=== PATIENT | female | born 1990 | race Two or more races ===

== ENCOUNTER 2016-05-12 11:54 | Emergency (ER) | payer BC ==
[2016-05-12 12:32] LABS: % IMMATURE GRANULYOCYTES 0.2 % (0.0-1.1); ABSOLUTE IMMATURE GRANULOCYTES 0.01 10^3/uL (0.00-0.10); ADD DIFF? NO; ADD MORPH? NO; ADD SCAN? NO; ATYPICAL LYMPHOCYTE FLAG 10 (0-99); FRAGMENT RBC FLAG 0 (0-99); HEMATOCRIT 47.5 % (38.0-47.0); HEMOGLOBIN 16.1 g/dL (12.6-16.3); LEFT SHIFT FLG 0 (0-99); LIPEMIA HEMOLYSIS FLAG 90 (0-99); MEAN CELL HEMOGLOBIN 31.3 pg (27.9-34.1); MEAN CELL HEMOGLOBIN CONCENTR. 33.9 g/dL (32.4-36.7); MEAN CELL VOLUME 92.2 fL (81.5-99.8); MEAN PLATELET VOLUME 11.5 fL (8.7-11.7); PLATELET CLUMPS FLAG 0 (0-99); PLATELET COUNT 253 10^3/uL (150-400); RED BLOOD CELL COUNT 5.15 10^6/uL (4.18-5.33); RED CELL DISTRIBUTION WIDTH 12.8 % (11.5-15.2)
[2016-05-12 12:54] LABS: ANION GAP 14 mEq/L (8-16); CALCIUM 10.1 mg/dL (8.5-10.4); CARBON DIOXIDE 23 mEq/l (22-31); CHLORIDE 104 mEq/L (97-110); CREATININE 0.8 mg/dL (0.6-1.0); GLOMERULAR FILTRATION RATE > 60; GLUCOSE 93 mg/dL (70-100); POTASSIUM 4.4 mEq/L (3.5-5.2); SODIUM 141 mEq/L (134-144)
[2016-05-12] MEDS ORDERED: ONDANSETRON 4 MG/2 ML VIAL IVP ONE (12:55)
[2016-05-12] MEDS ORDERED: NS 1,000 ML IV ONE (12:55)
[2016-05-12] MEDS ORDERED: ONDANSETRON 4 MG/2 ML VIAL ONE (12:55)
[2016-05-12 13:04] VITALS: TEMP 99
--- NOTE | 2016-05-12 13:08 | EDPHY ---
H & P Time Seen by Provider: 05/12/16 12:06 HPI/ROS: CHIEF COMPLAINT: Nausea, vomiting, blood in stool HISTORY OF PRESENT ILLNESS: 26-year-old female presents to the emergency department with nausea and vomiting over last 24 hours. The patient has vomited 3 times last 24 hours. She was able to keep a few sips of the smoothie down today. Over the last 1 year she has had intermittent blood in her stool. She has never seen a GI doctor for this. She has a twin sister has Crohn's disease. She denies abdominal pain. Denies fevers or chills. Denies recent travel. Denies diarrhea. No headache now although she states that she did have a headache last night. She is urinating normally. Last menstrual period was 1 week ago. REVIEW OF SYSTEMS: Constitutional: No fever, no chills. Eyes: No double or blurry vision. ENT: No sore throat. Respiratory: No cough, no shortness of breath. Cardiac: No chest pain. Gastrointestinal: Nausea and vomiting and blood in stool as above. No abdominal pain. Genitourinary: No dysuria. Musculoskeletal: No neck or back pain. Skin: No rashes. Neurological: No headache. Past Medical/Surgical History: Negative Social History: Single Smoking Status: Light smoker Physical Exam: General Appearance: Alert, no distress. 114/68, heart rate of 90, 96% on room air. Nontoxic appearing. Eyes: Pupils equal and round. Extraocular motions are all intact. ENT: Mouth: Mucous membranes moist. Respiratory: No wheezing, rhonchi, or rales, lungs are clear to auscultation. Cardiovascular: Regular rate and rhythm. Gastrointestinal: Abdomen is soft and nontender, no masses, no rebound or guarding, bowel sounds normal. Rectal exam: Normal sphincter tone with no evidence of external hemorrhoids. Gloved finger reveals bright red blood without stool. Exam performed with her friend at bedside. Neurological: Alert and oriented x 3, cranial nerves II through XII grossly intact Skin: Warm and dry, no rashes. Musculoskeletal: Nontender to palpate along the cervical, thoracic or lumbar spine. Neck is supple. Extremities: Full range of motion and no peripheral edema. Psychiatric: Patient is oriented X 3, there is no agitation. Constitutional: Initial Vital Signs Temperature (C) 36.3 C 05/12/16 11:57 Heart Rate 90 02/26/17 11:57 Respiratory Rate 18 05/12/16 11:57 Blood Pressure 114/68 05/12/16 11:57 O2 Sat (%) 96 05/12/16 11:57 O2 Delivery Mode Room Air Allergies/Adverse Reactions: No Known Allergies Allergy (Unverified 05/12/16 12:02) Home Medications: Medication Instructions Recorded NK [No Known Home Meds] 05/12/16 Medical Decision Making ED Course/Re-evaluation: 26-year-old female presents with nausea and vomiting. On rectal examination the patient had blood without any stool. I spoke with Dr. Vikash Burns who is on-call for GI and he will see this patient in follow -up. He agrees with colonoscopy. Patient was encouraged to arrange for follow- up appointment. Upon discharge the patient is tolerating water. Her stomach is feeling better. She is comfortable being discharged home. I do not think imaging studies are necessary. Her abdomen is benign. She has no peritoneal signs. Differential Diagnosis: Including but not limited to Crohn's disease, ulcerative colitis, irritable bowel, GI bleed, acute appendicitis - Data Points Laboratory Results: Laboratory Results 05/12/16 12:22 05/12/16 12:22 05/12/16 05/12/16 05/12/16 12:22 12:22 12:22 WBC 5.01 10^3/uL 10^3/uL (3.80-9.50) RBC 5.15 10^6/uL 10^6/uL (4.18-5.33) Hgb 16.1 g/dL g/dL (12.6-16.3) Hct 47.5 % H % (38.0-47.0) MCV 92.2 fL fL (81.5-99.8) MCH 31.3 pg pg (27.9-34.1) MCHC 33.9 g/dL g/dL (32.4-36.7) RDW 12.8 % % (11.5-15.2) Plt Count 253 10^3/uL 10^3/uL (150-400) MPV 11.5 fL fL (8.7-11.7) Neut % (Auto) 56.1 % % (39.3-74.2) Lymph % (Auto) 32.1 % % (15.0-45.0) [place] % (Auto) 6.6 % % (4.5-13.0) Eos % (Auto) 4.0 % % (0.6-7.6) Baso % (Auto) 1.0 % % (0.3-1.7) Nucleat RBC Rel Count 0.0 % % (0.0-0.2) Absolute Neuts (auto) 2.81 10^3/uL 10^3/uL (1.70-6.50) Absolute Lymphs (auto) 1.61 10^3/uL 10^3/uL (1.00-3.00) Absolute Monos (auto) 0.33 10^3/uL 10^3/uL (0.30-0.80) Absolute Eos (auto) 0.20 10^3/uL 10^3/uL (0.03-0.40) Absolute Basos (auto) 0.05 10^3/uL 10^3/uL (0.02-0.10) Absolute Nucleated RBC 0.00 10^3/uL 10^3/uL (0-0.01) Immature Gran % 0.2 % % (0.0-1.1) Immature Gran # 0.01 10^3/uL 10^3/uL (0.00-0.10) Sodium 141 mEq/L mEq/L (134-144) Potassium 4.4 mEq/L mEq/L (3.5-5.2) Chloride 104 mEq/L mEq/L (97-110) Carbon Dioxide 23 mEq/l mEq/l (22-31) Anion Gap 14 mEq/L mEq/L (8-16) BUN 19 mg/dL mg/dL (7-23) Creatinine 0.8 mg/dL mg/dL (0.6-1.0) Estimated GFR > 60 Glucose 93 mg/dL mg/dL (70-100) Calcium 10.1 mg/dL mg/dL (8.5-10.4) Beta HCG, Qual NEGATIVE Medications Given: Discontinued Medications Sodium Chloride (Ns) 1,000 mls @ 0 mls/hr IV ONCE ONE PRN Reason: Wide Open Stop: 05/12/16 12:56 Last Admin: 05/12/16 13:03 Dose: 1,000 mls Ondansetron HCl (Zofran) 4 mg IVP EDNOW ONE Stop: 05/12/16 12:56 Last Admin: 05/12/16 13:03 Dose: 4 mg Departure - Departure Disposition: Home, Routine, Self-Care Clinical Impression: Blood in stool Gastritis Qualifiers: Gastritis type: unspecified gastritis Chronicity: acute Gastritis bleeding: without bleeding Qualified Code(s): K29.00 - Acute gastritis without bleeding Condition: Good Instructions: Gastritis (ED), Rectal Bleeding (ED) Additional Instructions: Clear liquids and slowly advance diet as tolerated. Return if you developed abdominal pain, increased rectal bleeding, or if you feel worse in any way. Call to arrange follow-up appointment with network technician in tell them that we spoke with Dr. Vikash Burns on while you are in the emergency department and he asked that you schedule a follow-up appointment. Referrals: Vikash Burns MD [Medical Doctor] - As per Instructions ( [employer] Operator on-call)
[2016-05-12 14:30] VITALS: BP 101/63; PULSE 75; RESP 16; O2SAT 97
== END 2016-05-12 14:30 | disposition home or self-care (01) ==
DX: K92.1 Melena (principal); K29.00 Acute gastritis without bleeding; F17.200 Nicotine dependence, unspecified, uncomplicated
CPT/HCPCS: 96374; J2405